=== PATIENT | male | born 1985 | race Caucasian/White ===

== ENCOUNTER 2023-03-09 13:21 | Emergency (ER) | payer SELFPAY ==
[~2023-03-09] VITALS: Ht 190.5 cm; Wt 98.0 kg
[2023-03-09 13:24] VITALS: O2SAT 99
[2023-03-09] MEDS ORDERED: KETOROLAC 30MG/ML VIAL IV STA (13:38)
[2023-03-09] MEDS ORDERED: SODIUM CHLORIDE 0.9% 1,000 ML IV ONE (13:45)
[2023-03-09 14:13] LABS: BASOPHILS % 0.4 % (0.0-2.0); EOSINOPHILS % 1.4 % (0.0-5.0); HEMATOCRIT. 43.7 % (42.0-52.0); HEMOGLOBIN. 14.7 g/dL (14.0-18.0); LYMPHOCYTES % 26.9 % (20.0-50.0); MEAN CORPUSCULAR HEMOGLOBIN 29.1 pg (28.0-32.0); MEAN CORPUSCULAR VOLUME 86.5 fL (80.0-94.0); MEAN PLATELET VOLUME 8.5 fl (7.4-10.4); MONOCYTES % 9.4 % (2.0-8.0); NEUTROPHILS % 61.9 % (40.0-76.0); PLATELET 286 x1000/uL (130-400); RED BLOOD CELL COUNT 5.05 mill/uL (4.7-6.1); RED CELL DISTRIBUTION WIDTH 13.9 % (11.6-14.6)
[2023-03-09 14:23] LABS: CHLORIDE 105 mEq/L (98-107)
[2023-03-09] MEDS ORDERED: IBUP-2028 MT (15:02)
[2023-03-09 17:45] VITALS: BP 116/74; PULSE 64; RESP 19; TEMP 98.5
== END 2023-03-09 17:56 | disposition home or self-care (01) ==
LOC: ER 13:21
DX: R55 Syncope and collapse (principal); R51.9 Headache, unspecified; M54.2 Cervicalgia; W18.30XA Fall on same level, unspecified, initial encounter; Y93.89 Activity, other specified; Y92.89 Other specified places as the place of occurrence of the external cause; Y99.8 Other external cause status
CPT/HCPCS: 80053; 83880; 85025; 84484; 36415; 71045; 73030; 70450; 72125; 93005; 96361; 96374; 99285; J1885; J7030; Z7610 ×2